=== PATIENT | female | born 1960 | race Caucasian/White ===

== ENCOUNTER 2021-08-03 06:43 | Day surgery (SDC) | payer OTHER ==
[~2021-08-03] VITALS: Ht 160 cm; Wt 65.8 kg
[2021-08-03] MEDS ORDERED: LIDOCAINE 2% 100 MG/5 ML UJET TP ONE (09:27)
[2021-08-03] MEDS ORDERED: fentaNYL citrate 0.05 MG/ML VIAL ONE (09:27)
[2021-08-03] MEDS ORDERED: fentaNYL citrate 0.05 MG/ML VIAL IVP ONE (10:10)
== END 2021-08-03 10:38 | disposition home or self-care (01) ==
LOC: MDS 06:43 → MMU 06:54 → MDS 10:38
PROVIDERS: ATTEND Internal Medicine Gastroenterology
DX: Z12.11 Encounter for screening for malignant neoplasm of colon (principal); K21.9 Gastro-esophageal reflux disease without esophagitis; E11.9 Type 2 diabetes mellitus without complications; I10 Essential (primary) hypertension; Z79.899 Other long term (current) drug therapy; Z20.822 Contact with and (suspected) exposure to COVID-19
CPT/HCPCS: 45378; 87426; J3010

== ENCOUNTER 2023-08-01 07:55 | Day surgery (SDC) | payer OTHER ==
[~2023-08-01] VITALS: Ht 157.5 cm; Wt 72.6 kg
[2023-08-01] MEDS ORDERED: fentaNYL citrate 0.05 MG/ML VIAL ONE (09:17)
[2023-08-01] MEDS ORDERED: MIDAZOLAM 2 MG/2 ML VIAL ONE (09:17)
[2023-08-01] MEDS: MIDAZOLAM 2 MG/2 ML VIAL IVP ONE (09:35)
[2023-08-01] MEDS: fentaNYL citrate 0.05 MG/ML VIAL IVP ONE (09:35)
[2023-08-01] MEDS ORDERED: MIDAZOLAM 2 MG/2 ML VIAL IVP SCH (12:00)
[2023-08-01] MEDS ORDERED: fentaNYL citrate 0.05 MG/ML VIAL IVP SCH (12:00)
== END 2023-08-01 11:00 | disposition home or self-care (01) ==
LOC: MMU 07:55 → MDS 07:55
PROVIDERS: ATTEND Internal Medicine Gastroenterology
DX: R13.10 Dysphagia, unspecified (principal); K22.2 Esophageal obstruction; K44.9 Diaphragmatic hernia without obstruction or gangrene; K21.9 Gastro-esophageal reflux disease without esophagitis
CPT/HCPCS: 43235; 82948; J2250; J3010